=== PATIENT | male | born 2005 | race American Indian/Alaskan Native ===

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

== ENCOUNTER 2025-06-22 02:09 | Emergency (ER) | payer SELFPAY ==
[2025-06-22] MEDS: LORazepam 2 MG/ML SDV IM ONE ×2 (02:15→02:40)
[2025-06-22] MEDS: diphenhydrAMINE 50 MG/ML SDV IM ONE ×2 (02:16→02:40)
[2025-06-22 02:41] LABS: NEUTROPHILS PERCENT AUTO 68.6 % (42.2-75.2); PLATELET COUNT,PLT 395 10^3/uL (150-450); RED BLOOD CELL COUNT 5.77 10^6/uL (4.6-6.2); WHITE BLOOD CELL COUNT,WBC 13.9 10^3/uL (5.0-10.0)
[2025-06-22 02:42] LABS: BASOPHILS PERCENT AUTO 0.5 % (0.0-1.0); EOSINOPHILS PERCENT AUTO 0.4 % (1.0-3.0); LYMPHOCYTES PERCENT AUTO 26.5 % (20.5-50.1); MONOCYTES PERCENT AUTO 4.0 % (2-8)
[2025-06-22 02:56] LABS: A/G RATIO 1.0; ALANINE AMINOTRANSFERASE,ALT 39 U/L (16-63); ASPARTATE AMNIOTRANSFERASE,AST 30 U/L (15-37); BILIRUBIN TOTAL 0.3 mg/dL (0.2-1.0); BLOOD UREA NITROGEN,BUN 14 mg/dL (7-18); CARBON DIOXIDE,CO2 22 mmol/L (21-32); CREATINE KINASE,CK 485 U/L (39-308); CREATININE 1.14 mg/dL (0.70-1.30); GLUCOSE RANDOM 115 mg/dL (70-99); PROTEIN TOTAL,TP 8.8 g/dL (6.4-8.2)
[2025-06-22] MEDS: LORazepam 2 MG/ML SDV IVPUSH ONE ×2 (02:56→03:20)
[2025-06-22 03:00] LABS: CHLORIDE,CL 104 mmol/L (98-107); POTASSIUM,K 3.4 mmol/L (3.5-5.1)
[2025-06-22 03:03] LABS: ESTIMATED GFR 94 mL/min (>=60); ETHANOL BLOOD MEDICAL 351 mg/dL (0); SODIUM,NA 133 mmol/L (136-145)
[2025-06-22 03:10] LABS: BAND PERCENT MAN 1 %; EOSINOPHILS PERCENT MAN 1 % (1-3); LYMPHOCYTES PERCENT MAN 21 % (20-50); MONOCYTES PERCENT MAN 3 % (2-8); NRBC MANUAL 2 /100WBC; SEG NEUTROPHILS PERCENT MAN 72 % (42-75)
[2025-06-22] MEDS: LORazepam 2 MG/ML SDV ONE (06:10)
[2025-06-22] MEDS: Diphtheria,Pertussis(Acell),Tetanus Vaccine 0.5 ML Syringe IM ONE (06:59)
[2025-06-22 07:41] LABS: APPEARANCE,URINE CLEAR (CLEAR); GLUCOSE,URINE NEGATIVE (NEGATIVE); OCCULT BLOOD,URINE NEGATIVE (NEGATIVE)
[2025-06-22 07:44] LABS: AMPHETAMINES,URINE NEGATIVE (NEGATIVE); BARBITURATES,URINE NEGATIVE (NEGATIVE); MDMA (ECSTASY), URINE NEGATIVE (NEGATIVE); METHAMPHETAMINES,URINE NEGATIVE (NEGATIVE); OPIATES,URINE NEGATIVE (NEGATIVE); OXYCODONE,URINE NEGATIVE (NEGATIVE); PHENCYCLIDINE,URINE NEGATIVE (NEGATIVE); TCA,URINE NEGATIVE (NEGATIVE)
== END 2025-06-22 10:10 | disposition hospice, inpatient (51) ==
LOC: EDBD → MERGE 02:09 → DL.ED 02:09
DX: S02.40CA Maxillary fracture, right side, initial encounter for closed fracture (principal); F10.120 Alcohol abuse with intoxication, uncomplicated; F17.210 Nicotine dependence, cigarettes, uncomplicated; Z23 Encounter for immunization; Y04.8XXA Assault by other bodily force, initial encounter; Y93.89 Activity, other specified; Y90.9 Presence of alcohol in blood, level not specified
CPT/HCPCS: 12011; 36415; 70450; 70486; 71045; 72125; 80053; 80305; 80307; 81003; 82550; 83690; 85025; 90471; 90715; 96361; 96372; 96374; 99285; C1758; J1200; J1630; J2060; J7030